=== PATIENT | female | born 1935 | race Caucasian/White ===

== ENCOUNTER 2021-03-06 10:14 | Inpatient (IN) ==
[2021-03-06] MEDS ORDERED: Acetaminophen 325 MG TABLET PO PRN (14:02)
[2021-03-06] MEDS ORDERED: Naloxone 0.4 MG/ML INJ IVP PRN (14:02)
[2021-03-06] MEDS ORDERED: Ondansetron 4 MG/2 ML VIAL IVP PRN (14:02)
[2021-03-06] MEDS ORDERED: levoFLOXacin 750 MG/150 ML 750 MG/150 ML BAG IVPB SCH (14:15)
[2021-03-06] MEDS ORDERED: Perflutren Lipid Microsphere 1.3 ML in 0.9 % Sodium Chloride 8.7 ML IVP PRN (14:19)
[2021-03-06 15:30] LABS: BUN/Creatinine Ratio 29 (6-26); Blood Urea Nitrogen 22 mg/dL (8-23); Calcium 7.9 mg/dL (8.6-10.3); Carbon Dioxide 25 mEq/L (23-29); Chloride 94 mEq/L (98-107); Glucose 233 mg/dL (70-105); Osmolality,Calculated 275 (280-300); Potassium 4.7 mEq/L (3.5-5.1); Sodium 127 mEq/L (136-145); eGFR For African Americans > 60 (> 60); eGFR For Non-African Americans > 60 (> 60)
[2021-03-06] MEDS: 0.9 % Sodium Chloride 1,000 ML IVC SCH (15:59)
[2021-03-06] MEDS ORDERED: Ipratropium/Albuterol Neb 3 ML IH SCH (16:00)
[2021-03-06] MEDS ORDERED: NON-FORMULARY MEDICATION 1 EACH EACH (Albuterol Sulfate 18 GM Hfa.Aer.Ad) IH PRN (16:19)
[2021-03-06] MEDS ORDERED: Sennosides/Docusate Sodium TABLET PO PRN (16:19)
[2021-03-06] MEDS: polyethylene glycoL 3350 17 GM POWD.PACK PO SCH (17:13)
[2021-03-06] MEDS: Cefepime HCl 1,000 MG in 0.9 % Sodium Chloride Mini Bag 100 ML IVPB SCH (17:13)
[2021-03-06] MEDS ORDERED: Doxycycline 100 MG in 0.9 % Sodium Chloride Mini Bag 100 ML IVPB SCH (18:00)
[2021-03-06] MEDS: Ipratropium 1 PUFF INHALER IH SCH (18:11)
[2021-03-06] MEDS: Budesonide/Formoterol 80/4.5 1 PUFF INH IH SCH (18:12)
[2021-03-06 19:04] LABS: C-Reactive Protein 120 mg/L (Less than 10)
[2021-03-07] MEDS: Ipratropium 1 PUFF INHALER IH SCH ×6 (00:41→19:52)
[2021-03-07] MEDS: 0.9 % Sodium Chloride 1,000 ML IVC SCH (02:31)
[2021-03-07 04:34] LABS: ABG Base Excess 1 mEq/L (-2 to 3); ABG HCO3 24 mEq/L (21-27); ABG Oxygen Saturation 92 % (95-98); ABG PCO2 34 mmHg (35-45); ABG PH 7.46 pH Units (7.32-7.45); ABG PO2 60 mmHg (85-104); ABG TCO2 25 mEq/L (20-26)
[2021-03-07] MEDS: Cefepime HCl 1,000 MG in 0.9 % Sodium Chloride Mini Bag 100 ML IVPB SCH ×2 (05:21→17:00)
[2021-03-07 06:00] LABS: Hematocrit 33.9 % (35.3-44.9); Hemoglobin 11.1 g/dL (11.5-15.4); Mean Corpuscular HGB Conc 32.7 g/dL (31.6-35.5); Mean Corpuscular Hemoglobin 31.6 pg (28.0-33.3); Mean Corpuscular Volume 96.6 fL (83.0-100.0); Mean Platelet Volume 8.7 fL (9.4-12.4); Platelet Count 243 K/mcL (140-400); Red Blood Count 3.51 M/mcL (3.82-4.97); Red Cell Distribution Width 13.3 % (11.5-14.5); White Blood Count 21.6 K/mcL (4.3-11.1)
[2021-03-07 07:06] LABS: BUN/Creatinine Ratio 28 (6-26); Blood Urea Nitrogen 19 mg/dL (8-23); Calcium 7.7 mg/dL (8.6-10.3); Carbon Dioxide 23 mEq/L (23-29); Chloride 98 mEq/L (98-107); Cholesterol 97 mg/dL (< 200); Glucose 108 mg/dL (70-105); HDL Cholesterol 49 mg/dL (40-59); LDL Cholesterol,Calculated 37 mg/dL (< 100); Magnesium 1.8 mg/dL (1.6-2.6); Osmolality,Calculated 271 (280-300); Potassium 4.6 mEq/L (3.5-5.1); Sodium 129 mEq/L (136-145); Triglycerides 55 mg/dL (< 150); eGFR For African Americans > 60 (> 60); eGFR For Non-African Americans > 60 (> 60)
[2021-03-07] MEDS: Budesonide/Formoterol 80/4.5 1 PUFF INH IH SCH ×2 (07:40→19:52)
[2021-03-07] MEDS ORDERED: Dexamethasone Sodium Phos/PF 10 MG/ML VIAL IVP SCH (09:00)
[2021-03-07] MEDS: Valsartan 160 MG TABLET PO SCH (09:41)
[2021-03-07] MEDS: amLODIPine 5 MG TABLET PO SCH (09:41)
[2021-03-07] MEDS: Multivit/Ca/Min/Fe/FA 1 TAB TABLET PO SCH (09:41)
[2021-03-07] MEDS: Loratadine 10 MG TABLET PO SCH (09:41)
[2021-03-07] MEDS: OCUVITE ADULT PO SCH (09:42)
[2021-03-07] MEDS: polyethylene glycoL 3350 17 GM POWD.PACK PO SCH (09:42)
[2021-03-08] MEDS: Ipratropium 1 PUFF INHALER IH SCH ×7 (01:13→23:43)
[2021-03-08] MEDS: Cefepime HCl 1,000 MG in 0.9 % Sodium Chloride Mini Bag 100 ML IVPB SCH ×3 (01:16→16:58)
[2021-03-08] MEDS ORDERED: *HR* Enoxaparin 40 MG/0.4 ML SYRINGE SQ SCH (06:00)
[2021-03-08 06:15] LABS: Hematocrit 35.7 % (35.3-44.9); Hemoglobin 11.7 g/dL (11.5-15.4); Mean Corpuscular HGB Conc 32.8 g/dL (31.6-35.5); Mean Corpuscular Hemoglobin 31.6 pg (28.0-33.3); Mean Corpuscular Volume 96.5 fL (83.0-100.0); Mean Platelet Volume 8.6 fL (9.4-12.4); Platelet Count 252 K/mcL (140-400); Red Cell Distribution Width 13.1 % (11.5-14.5); White Blood Count 22.2 K/mcL (4.3-11.1)
[2021-03-08 06:42] LABS: Alanine Aminotransferase 34 Units/L (7-52); Albumin/Globulin Ratio 1.1 (1.1-2.2); Alkaline Phosphatase 106 Units/L (34-104); Aspartate Amino Transferase 41 Units/L (13-39); Carbon Dioxide 27 mEq/L (23-29); Chloride 95 mEq/L (98-107); Globulin 2.7 g/dL (2.4-3.5); Glucose 132 mg/dL (70-105); Magnesium 1.9 mg/dL (1.6-2.6); Potassium 4.7 mEq/L (3.5-5.1); Sodium 128 mEq/L (136-145); Total Protein 5.7 g/dL (6.4-8.9); eGFR For African Americans > 60 (> 60); eGFR For Non-African Americans > 60 (> 60)
[2021-03-08 06:44] LABS: BUN/Creatinine Ratio 34 (6-26); Blood Urea Nitrogen 24 mg/dL (8-23); Osmolality,Calculated 272 (280-300)
[2021-03-08] MEDS: Budesonide/Formoterol 80/4.5 1 PUFF INH IH SCH ×2 (08:42→19:14)
[2021-03-08] MEDS ORDERED: Dexamethasone Sodium Phos/PF 10 MG/ML VIAL IVP SCH ×2 (09:00)
[2021-03-08] MEDS: polyethylene glycoL 3350 17 GM POWD.PACK PO SCH (09:55)
[2021-03-08] MEDS: Multivit/Ca/Min/Fe/FA 1 TAB TABLET PO SCH (09:56)
[2021-03-08] MEDS: Loratadine 10 MG TABLET PO SCH (09:56)
[2021-03-08] MEDS: amLODIPine 5 MG TABLET PO SCH (09:56)
[2021-03-08] MEDS: OCUVITE ADULT PO SCH (09:57)
[2021-03-08] MEDS: Valsartan 160 MG TABLET PO SCH (09:58)
[2021-03-08 13:07] LABS: C-Reactive Protein 88 mg/L (Less than 10)
[2021-03-08 23:45] VITALS: O2SAT 92
[2021-03-09] VITALS: BP 165/90; PULSE 80; RESP 19; TEMP 98.3
[2021-03-09] MEDS: Cefepime HCl 1,000 MG in 0.9 % Sodium Chloride Mini Bag 100 ML IVPB SCH (00:26)
[2021-03-09 19:12] LABS: Ferritin 84 ng/mL (10-120)
[2021-03-10 00:15] LABS: Ferritin 337 ng/mL (10-120)
== END 2021-03-09 02:11 | disposition other institution (70) | DRG 177 ==
LOC: INPGRE
PROVIDERS: ADMIT Family Medicine; ATTEND Family Medicine

== ENCOUNTER 2021-03-27 21:38 | Inpatient (IN) ==
[2021-03-28 05:08] LABS: Basophils % 0.4 %; Eosinophils % 0.4 %; Hematocrit 31.8 % (35.3-44.9); Hemoglobin 10.7 g/dL (11.5-15.4); Immature Granulocytes % 1.5 % (0-4); Lymphocytes # 5.2 K/mcL (0.6-4.6); Lymphocytes % 50.4 %; Mean Corpuscular HGB Conc 33.6 g/dL (31.6-35.5); Mean Corpuscular Hemoglobin 33.2 pg (28.0-33.3); Mean Corpuscular Volume 98.8 fL (83.0-100.0); Mean Platelet Volume 8.2 fL (9.4-12.4); Monocytes # 0.4 K/mcL (0.0-1.3); Monocytes % 4.2 %; Neutrophils # 4.4 K/mcL (1.6-8.9); Platelet Count 184 K/mcL (140-400); Red Blood Count 3.22 M/mcL (3.82-4.97); Red Cell Distribution Width 14.3 % (11.5-14.5); Segmented Neutrophils % 43.1 %; White Blood Count 10.2 K/mcL (4.3-11.1)
[2021-03-28 05:15] LABS: Prothrombin Time 10.8 Seconds (9.4-12.1)
[2021-03-28 05:23] LABS: BUN/Creatinine Ratio 38 (6-26); Blood Urea Nitrogen 30 mg/dL (8-23); Calcium 8.4 mg/dL (8.6-10.3); Carbon Dioxide 25 mEq/L (23-29); Chloride 97 mEq/L (98-107); Glucose 107 mg/dL (70-105); Magnesium 1.8 mg/dL (1.6-2.6); Osmolality,Calculated 277 (280-300); Phosphorous 3.4 mg/dL (2.7-4.5); Potassium 4.2 mEq/L (3.5-5.1); Sodium 130 mEq/L (136-145); eGFR For African Americans > 60 (> 60); eGFR For Non-African Americans > 60 (> 60)
[2021-03-28] MEDS: Valsartan 160 MG TABLET PO SCH (08:42)
[2021-03-28] MEDS: Multivit/Ca/Min/Fe/FA 1 TAB TABLET PO SCH (08:42)
[2021-03-28] MEDS: amLODIPine 5 MG TABLET PO SCH ×2 (08:43→21:38)
[2021-03-28] MEDS: dexAMETHasone 4 MG TABLET PO SCH (08:43)
[2021-03-28] MEDS: (Ocuvite Softgel) PO SCH (08:44)
[2021-03-28] MEDS: Budesonide/Formoterol 80/4.5 1 PUFF INH IH SCH ×2 (10:08→14:32)
[2021-03-29] MEDS: Valsartan 160 MG TABLET PO SCH (08:22)
[2021-03-29] MEDS: Multivit/Ca/Min/Fe/FA 1 TAB TABLET PO SCH (08:22)
[2021-03-29] MEDS: (Ocuvite Softgel) PO SCH (08:23)
[2021-03-29] MEDS: amLODIPine 5 MG TABLET PO SCH ×2 (08:23→21:28)
[2021-03-29] MEDS: dexAMETHasone 4 MG TABLET PO SCH (08:23)
[2021-03-29] MEDS: Budesonide/Formoterol 80/4.5 1 PUFF INH IH SCH ×2 (10:11→21:09)
[2021-03-30] MEDS: *HR* Enoxaparin 40 MG/0.4 ML SYRINGE SQ SCH (05:11)
[2021-03-30] MEDS: amLODIPine 5 MG TABLET PO SCH ×2 (08:11→23:00)
[2021-03-30] MEDS: (Ocuvite Softgel) PO SCH (08:12)
[2021-03-30] MEDS: Multivit/Ca/Min/Fe/FA 1 TAB TABLET PO SCH (08:12)
[2021-03-30] MEDS: Valsartan 160 MG TABLET PO SCH (08:12)
[2021-03-30] MEDS: dexAMETHasone 4 MG TABLET PO SCH (08:12)
[2021-03-30] MEDS: Budesonide/Formoterol 80/4.5 1 PUFF INH IH SCH ×2 (10:05→21:10)
[2021-03-30] MEDS: Acetaminophen 325 MG TABLET PO PRN (23:01)
[2021-03-31 06:21] LABS: Hematocrit 31.5 % (35.3-44.9); Hemoglobin 10.2 g/dL (11.5-15.4); Mean Corpuscular HGB Conc 32.4 g/dL (31.6-35.5); Mean Corpuscular Hemoglobin 32.7 pg (28.0-33.3); Mean Platelet Volume 8.4 fL (9.4-12.4); Platelet Count 193 K/mcL (140-400); Red Blood Count 3.12 M/mcL (3.82-4.97); Red Cell Distribution Width 14.8 % (11.5-14.5); White Blood Count 8.9 K/mcL (4.3-11.1)
[2021-03-31 06:39] LABS: Alanine Aminotransferase 39 Units/L (7-52); Albumin/Globulin Ratio 1.2 (1.1-2.2); Alkaline Phosphatase 72 Units/L (34-104); Aspartate Amino Transferase 21 Units/L (13-39); BUN/Creatinine Ratio 48 (6-26); Bilirubin,Total 0.8 mg/dL (0.3-1.0); Blood Urea Nitrogen 33 mg/dL (8-23); Carbon Dioxide 28 mEq/L (23-29); Chloride 96 mEq/L (98-107); Globulin 2.5 g/dL (2.4-3.5); Glucose 101 mg/dL (70-105); Osmolality,Calculated 277 (280-300); Potassium 4.3 mEq/L (3.5-5.1); Sodium 130 mEq/L (136-145); Total Protein 5.5 g/dL (6.4-8.9); eGFR For African Americans > 60 (> 60); eGFR For Non-African Americans > 60 (> 60)
[2021-03-31] MEDS: *HR* Enoxaparin 40 MG/0.4 ML SYRINGE SQ SCH (06:42)
[2021-03-31] MEDS: amLODIPine 5 MG TABLET PO SCH ×2 (08:38→23:49)
[2021-03-31] MEDS: Valsartan 160 MG TABLET PO SCH (08:38)
[2021-03-31] MEDS: Multivit/Ca/Min/Fe/FA 1 TAB TABLET PO SCH (08:39)
[2021-03-31] MEDS: dexAMETHasone 4 MG TABLET PO SCH (08:39)
[2021-03-31] MEDS: (Ocuvite Softgel) PO SCH (08:39)
[2021-03-31] MEDS: Budesonide/Formoterol 80/4.5 1 PUFF INH IH SCH ×2 (10:09→21:33)
[2021-04-01] MEDS: *HR* Enoxaparin 40 MG/0.4 ML SYRINGE SQ SCH (04:59)
[2021-04-01] MEDS: Multivit/Ca/Min/Fe/FA 1 TAB TABLET PO SCH (08:25)
[2021-04-01] MEDS: Valsartan 160 MG TABLET PO SCH (08:25)
[2021-04-01] MEDS: amLODIPine 5 MG TABLET PO SCH (08:25)
[2021-04-01] MEDS: (Ocuvite Softgel) PO SCH (08:25)
[2021-04-01] MEDS: dexAMETHasone 4 MG TABLET PO SCH (08:25)
[2021-04-01] MEDS: Budesonide/Formoterol 80/4.5 1 PUFF INH IH SCH ×2 (10:12→22:20)
[2021-04-02] MEDS: *HR* Enoxaparin 40 MG/0.4 ML SYRINGE SQ SCH (05:16)
[2021-04-02] MEDS: Acetaminophen 325 MG TABLET PO PRN ×2 (08:07→16:38)
[2021-04-02] MEDS: Valsartan 160 MG TABLET PO SCH (08:08)
[2021-04-02] MEDS: dexAMETHasone 4 MG TABLET PO SCH (08:08)
[2021-04-02] MEDS: Multivit/Ca/Min/Fe/FA 1 TAB TABLET PO SCH (08:08)
[2021-04-02] MEDS: amLODIPine 5 MG TABLET PO SCH (08:08)
[2021-04-02] MEDS: Budesonide/Formoterol 80/4.5 1 PUFF INH IH SCH ×2 (10:25→20:23)
[2021-04-02] MEDS: (Ocuvite Softgel) PO SCH (11:34)
[2021-04-02] MEDS: Loratadine/Pseudophed (12 HR) 1 EACH TABLET PO SCH (21:17)
[2021-04-03] MEDS: Acetaminophen 325 MG TABLET PO PRN ×2 (00:34→08:22)
[2021-04-03] MEDS: *HR* Enoxaparin 40 MG/0.4 ML SYRINGE SQ SCH (05:38)
[2021-04-03] MEDS: Multivit/Ca/Min/Fe/FA 1 TAB TABLET PO SCH (08:22)
[2021-04-03] MEDS: amLODIPine 5 MG TABLET PO SCH ×2 (08:22→08:25)
[2021-04-03] MEDS: Valsartan 160 MG TABLET PO SCH ×2 (08:22→08:25)
[2021-04-03] MEDS: dexAMETHasone 4 MG TABLET PO SCH (08:23)
[2021-04-03] MEDS: Loratadine/Pseudophed (12 HR) 1 EACH TABLET PO SCH ×2 (08:23→20:12)
[2021-04-03] MEDS: (Ocuvite Softgel) PO SCH (08:23)
[2021-04-03] MEDS: Budesonide/Formoterol 80/4.5 1 PUFF INH IH SCH ×2 (10:03→21:30)
[2021-04-03] MEDS: ACETAMINOPHEN 650 MG PO SCH (20:12)
[2021-04-04] MEDS: *HR* Enoxaparin 40 MG/0.4 ML SYRINGE SQ SCH (05:34)
[2021-04-04] MEDS: Loratadine/Pseudophed (12 HR) 1 EACH TABLET PO SCH (08:32)
[2021-04-04] MEDS: Multivit/Ca/Min/Fe/FA 1 TAB TABLET PO SCH (08:32)
[2021-04-04] MEDS: dexAMETHasone 4 MG TABLET PO SCH (08:32)
[2021-04-04] MEDS: Valsartan 160 MG TABLET PO SCH ×2 (08:32→09:22)
[2021-04-04] MEDS: amLODIPine 5 MG TABLET PO SCH (08:32)
[2021-04-04] MEDS: (Ocuvite Softgel) PO SCH (08:34)
[2021-04-04] MEDS: ACETAMINOPHEN 650 MG PO SCH ×2 (08:34→20:29)
[2021-04-04] MEDS: Budesonide/Formoterol 80/4.5 1 PUFF INH IH SCH ×2 (09:51→20:21)
[2021-04-05] MEDS: *HR* Enoxaparin 40 MG/0.4 ML SYRINGE SQ SCH (05:18)
[2021-04-05] MEDS: Budesonide/Formoterol 80/4.5 1 PUFF INH IH SCH ×2 (07:58→21:29)
[2021-04-05] MEDS: (Ocuvite Softgel) PO SCH (08:08)
[2021-04-05] MEDS: Loratadine/Pseudophed (12 HR) 1 EACH TABLET PO SCH (08:08)
[2021-04-05] MEDS: Valsartan 160 MG TABLET PO SCH (08:08)
[2021-04-05] MEDS: dexAMETHasone 4 MG TABLET PO SCH (08:08)
[2021-04-05] MEDS: Multivit/Ca/Min/Fe/FA 1 TAB TABLET PO SCH (08:08)
[2021-04-05] MEDS: ACETAMINOPHEN 650 MG PO SCH ×2 (08:08→19:51)
[2021-04-06] MEDS: *HR* Enoxaparin 40 MG/0.4 ML SYRINGE SQ SCH (05:29)
[2021-04-06] MEDS: Budesonide/Formoterol 80/4.5 1 PUFF INH IH SCH (07:16)
[2021-04-06 07:21] VITALS: RESP 17
[2021-04-06 07:32] VITALS: BP 124/71; PULSE 95; TEMP 98.2
[2021-04-06] MEDS: Multivit/Ca/Min/Fe/FA 1 TAB TABLET PO SCH (08:10)
[2021-04-06] MEDS: Loratadine/Pseudophed (12 HR) 1 EACH TABLET PO SCH (08:10)
[2021-04-06] MEDS: Valsartan 160 MG TABLET PO SCH (08:11)
[2021-04-06] MEDS: dexAMETHasone 4 MG TABLET PO SCH (08:12)
[2021-04-06] MEDS: ACETAMINOPHEN 650 MG PO SCH (08:12)
[2021-04-06] MEDS: (Ocuvite Softgel) PO SCH (08:14)
[2021-04-06 11:29] VITALS: O2SAT 97
== END 2021-04-06 12:08 | disposition home health service (06) | DRG 189 ==
LOC: INPGRE 22:58
PROVIDERS: ADMIT Family Medicine; ATTEND Family Medicine